=== PATIENT | female | born 1965 | race African-American/Black ===

== ENCOUNTER → 2018-09-17 | Outpatient (CLI) | payer OTHER ==
[~2018-09-17] MED LIST: ASPIRIN EC81 M1 PO; BACTRIM DS TAB1 EACH PO; CINNAMON ALPHA1 EACH PO; COMBIGAN EYE DR10 ML OP; DIABETA 2.5MG2.5 MG PO; DOXYCYCLINE 10100 MG PO; FISH OIL 1,001000 M1 PO; IBUPROFEN 600600 M1 PO; JANUVIA100 MG PO; LANTUS SUBQ; LATANOPROST2.5 ML OP; NORCO 5-325 TA1 EACH PO; NORVASC 5 MG TAB5 MG PO; PRINIVIL10 MG PO; RESTORIL7.5 MG PO; SIMVASTATIN5 MG PO; TRUSOPT OCUMETE10 M1 OP; TRUSOPT OCUMETE10 ML OPHTHALMIC
== END ==
LOC: RAD 11:07
DX: M79.672 Pain in left foot (principal); Z88.1 Allergy status to other antibiotic agents; Z88.0 Allergy status to penicillin; Z88.8 Allergy status to other drugs, medicaments and biological substances

== ENCOUNTER → 2020-04-23 | Outpatient (CLI) | payer OTHER | LOC: CAT 07:35 | PROVIDERS: ATTEND Nurse Practitioner | DX: K44.9 Diaphragmatic hernia without obstruction or gangrene (principal); K42.9 Umbilical hernia without obstruction or gangrene; N92.0 Excessive and frequent menstruation with regular cycle ==

== ENCOUNTER → 2020-07-06 | Outpatient (CLI) | payer OTHER | LOC: BC 10:07 | PROVIDERS: ATTEND Nurse Practitioner | DX: Z12.31 Encounter for screening mammogram for malignant neoplasm of breast (principal) ==